=== PATIENT | female | born 1980 | race Caucasian/White ===

== ENCOUNTER 2020-10-19 01:36 | Inpatient (IN) | payer OTHER ==
[2020-10-19] MEDS ORDERED: BUTORPHANOL 2 MG/1 ML INJ IV PRN (02:57)
[2020-10-19] MEDS ORDERED: ONDANSETRON 4 MG/2 ML INJ IV PRN ×2 (02:57→04:16)
[2020-10-19] MEDS ORDERED: OXYTOCIN 10 UNIT/1 ML INJ IM PRN (02:57)
[2020-10-19] MEDS ORDERED: LOPERAMIDE 2 MG CAP PO PRN (02:57)
[2020-10-19] MEDS ORDERED: MINERAL OIL 30 ML ORAL LIQD PO PRN (02:57)
[2020-10-19] MEDS ORDERED: ACETAMINOPHEN 325 MG TAB PO PRN (02:57)
[2020-10-19] MEDS ORDERED: CARBOPROST TROMETHAMINE 250 MCG/1 ML INJ IM PRN (02:57)
[2020-10-19] MEDS ORDERED: fentaNYL 100 MCG/2 ML INJ IV PRN (02:57)
[2020-10-19] MEDS ORDERED: ePHEDrine SULFATE 50 MG/1 ML INJ IV PRN ×2 (02:57→04:16)
[2020-10-19] MEDS ORDERED: TERBUTALINE 1 MG/1 ML INJ SUB-Q PRN (02:57)
[2020-10-19] MEDS ORDERED: METHYLERGONOVINE MALEATE 0.2 MG/ML VIAL IM PRN (02:57)
[2020-10-19] MEDS ORDERED: LIDOCAINE (2%) 20 MG/1 ML VIAL 20 ML MDV INFILTRATI ONE (02:57)
[2020-10-19] MEDS ORDERED: miSOPROStol 200 MCG TAB PR PRN (02:57)
[2020-10-19] MEDS ORDERED: AMPICILLIN/NS 2 GM/100 ML 2 GM/100 ML BAG IV ONE (02:57)
[2020-10-19] MEDS ORDERED: OXYTOCIN DRIP 30 UNITS/500 ML BAG IV SCH (03:00)
[2020-10-19] MEDS ORDERED: LACTATED RINGERS 1,000 ML ONE (03:08)
[2020-10-19] MEDS: LACTATED RINGERS 1,000 ML IV SCH ×2 (03:33→04:31)
[2020-10-19 03:59] LABS: Hematocrit 33.8 % (30.3-42.9); Hemoglobin 10.6 gm/dl (10.1-14.3); Mean Corpuscular HGB Conc 31 % (30-34); Mean Corpuscular Volume 71 fl (79-97); Platelet Count 259 K/mm3 (140-440); Red Blood Count 4.74 M/mm3 (3.65-5.03); Red Cell Distribution Width 17.1 % (13.2-15.2)
[2020-10-19] MEDS ORDERED: NalbUPHINE 10 MG/1 ML INJ IV PRN (04:16)
[2020-10-19] MEDS ORDERED: NALOXONE 2 MG/2 ML INJ IV PRN (04:16)
[2020-10-19] MEDS ORDERED: LACTATED RINGERS 250 ML IV SOLN IV ONE (04:16)
[2020-10-19] MEDS ORDERED: diphenhydrAMINE 50 MG/ML VIAL IV PRN (04:16)
[2020-10-19 04:24] LABS: Hepatitis C Virus Antibody Non-Reactive (NonReactive)
--- NOTE | 2020-10-19 04:47 | Anesthesia Consultation ---
Anesthesia Consult and Med Hx Date of service: 10/19/20 - Airway Anesthetic Teeth Evaluation: Good ROM Head & Neck: Adequate Mental/Hyoid Distance: Adequate Mallampati Class: Class I Intubation Access Assessment: Good - Pulmonary Exam CTA: Yes - Cardiac Exam Cardiac Exam: RRR - Pre-Operative Health Status ASA Pre-Surgery Classification: ASA2 Proposed Anesthetic Plan: Epidural - Pulmonary Hx Smoking: No Hx Asthma: No COPD: No Hx Pneumonia: No Hx Sleep Apnea: No - Cardiovascular System Hx Hypertension: No Hx Heart Attack/AMI: No Hx Angina: No - Central Nervous System Hx Psychiatric Problems: Yes (2008 depression) - Gastrointestinal Hx Gastroesophageal Reflux Disease: No - Endocrine Hx Renal Disease: No Hx End Stage Renal Disease: No Hx Liver Disease: No Hx Insulin Dependent Diabetes: No Hx Non-Insulin Dependent Diabetes: No - Other Systems Hx Alcohol Use: No
--- NOTE | 2020-10-19 04:48 | Progress Note ---
Labor Epidural - Labor Epidural Start Time: 04:28 Stop Time: 04:40 Performed by:: SHILPA BRANTLEY Procedure: Patient is requesting epidural for labor and pain. H&P, labs were reviewed. Patient IDed, H&P reviewed, all questions and concerns were answered, and consent was signed. Timeout was performed at bedside. Patient in sitting position. Sterile prep and drape was performed. 3ml of 1% lidocaine skin wheal at L[3]- L [4]. 18-gauge [employer] epidural needle was advanced to loss of resistance with air technique 5cm. Negative CSF negative blood. Epidural catheter advanced to [10] centimeters. [negative] Aspiration [negative] test dose. Sterile dressing applied. Patient tolerated procedure.
[2020-10-19] MEDS ORDERED: fentaNYL-BUPIV 2 MCG/ML-0.125% 200 MCG/100 ML BAG EPIDURAL SCH (05:00)
--- NOTE | 2020-10-19 05:09 | History and Physical Report ---
History of Present Illness Date of examination: 10/19/20 Date of admission: 10/19/20 03:14 Chief complaint: active labor/SROM History of present illness: He 10-year-old -0-1-1 at 39+ weeks with spontaneous rupture of membranes and active labor. care at [facility] with no records. Past History Past Surgical History: no surgical history Social history: no significant social history - Obstetrical History Expected Date of Delivery: 10/26/20 Actual Gestation: 39 Week(s) 0 Day(s) : 3 Para: 1 Medications and Allergies Allergies Allergy/AdvReac Type Severity Reaction Status Date / Time No Known Allergies Allergy Verified 10/19/20 03:06 Active Meds: Active Medications Acetaminophen (Acetaminophen 325 Mg Tab) 650 mg PO Q4H PRN PRN Reason: Pain, Mild (1-3) Butorphanol Tartrate (Butorphanol 2 Mg/1 Ml Inj) 1 mg IV Q2H PRN PRN Reason: Pain, Moderate(4-6) LABOR PAIN Carboprost Tromethamine (Carboprost Tromethamine 250 Mcg/1 Ml Inj) 250 mcg IM ONCE PRN PRN Reason: Uterine Bleeding Diphenhydramine HCl (Diphenhydramine 50 Mg/Ml Vial) 12.5 mg IV Q2H PRN PRN Reason: Itching Ephedrine Sulfate (Ephedrine Sulfate 50 Mg/1 Ml Inj) 10 mg IV Q2M PRN PRN Reason: Hypotension Fentanyl (Fentanyl 100 Mcg/2 Ml Inj) 100 mcg IV Q2H PRN PRN Reason: Pain,Severe (7-10) LABOR PAIN Last Admin: 10/19/20 03:32 Dose: 100 mcg Documented by: Lactated Ringer's (Lactated Ringers) 1,000 mls @ 125 mls/hr IV DIRECT [place] Last Admin: 10/19/20 04:31 Dose: 125 mls/hr Documented by: Oxytocin/Sodium Chloride (Pitocin/Ns 30 Unit/500ml) 30 units in 500 mls @ 40 mls/hr IV TITR [place]; Protocol Fentanyl/Bupivacaine/Sodium Chlor (Fentanyl-Bupiv 2 Mcg/Ml-0.125%) 200 mcg in 100 mls @ 12 mls/hr EPIDURAL TITR [place]; Protocol Loperamide HCl (Loperamide 2 Mg Cap) 2 mg PO ONCE PRN PRN Reason: give with Hemabate Methylergonovine Maleate (Methylergonovine Maleate 0.2 Mg/Ml Vial) 0.2 mg IM ONCE PRN PRN Reason: Uterine Bleeding Mineral Oil (Mineral Oil 30 Ml Oral Liqd) 30 ml PO QHS PRN PRN Reason: Constipation Misoprostol (Misoprostol 200 Mcg Tab) 800 mcg MN ONCE PRN PRN Reason: Uterine Bleeding Nalbuphine HCl (Nalbuphine 10 Mg/1 Ml Inj) 2.5 mg IV Q2H PRN PRN Reason: Itching Naloxone HCl (Naloxone 2 Mg/2 Ml Inj) 0.2 mg IV Q5M PRN PRN Reason: Respiratory sedation Ondansetron HCl (Ondansetron 4 Mg/2 Ml Inj) 4 mg IV Q8H PRN PRN Reason: Nausea And Vomiting Oxytocin (Oxytocin 10 Unit/1 Ml Inj) 10 unit IM ONCE PRN PRN Reason: Uterine Bleeding Terbutaline Sulfate (Terbutaline 1 Mg/1 Ml Inj) 0.25 mg SUB-Q ONCE PRN PRN Reason: Hyperstimulation/Hypertonicity Review of Systems All systems: negative (contractions,leaking fluid) - Vital Signs Vital signs: Vital Signs Pulse Pulse Ox 96 H 98 10/19/20 02:17 10/19/20 02:17 Temp Pulse Resp BP Pulse Ox 97.8 F 92 H 18 112/68 98 10/19/20 03:42 10/19/20 05:03 10/19/20 04:32 10/19/20 04:51 10/19/20 05:03 - Physical Exam Breasts: Positive: deferred Cardiovascular: Regular rate Lungs: Positive: Clear to auscultation Abdomen: Positive: normal appearance, soft, normal bowel sounds Genitourinary (Female): Positive: normal external genitalia, normal perenium Vagina: Positive: normal moisture Uterus: Positive: enlarged Anus/Rectum: Positive: normal perianal skin Extremities: Positive: normal Deep Tendon Reflex Grade: Normal +2 - Obstetrical FHR: category 1 Uterine Contraction Monitor Mode: External Cervical Dilatation: 5 Cervical Effacement Percentage: 80 station: -1 Uterine Contraction Pattern: Regular Results Result Diagrams: 10/19/20 03:10 Abnormal lab results 10/19/20 Range/Units 03:10 WBC 16.3 H (4.5-11.0) K/mm3 MCV 71 L (79-97) fl MCH 22 L (28-32) pg RDW 17.1 H (13.2-15.2) % All other labs normal. Assessment and Plan SROM/active labor Plan for admission lab GBS coverage Pain meds as needed continuous monitoring Maternal and status reassuring at bedside Tiffanie Diana MD
--- NOTE | 2020-10-19 05:43 | Progress Note ---
Subjective - Subjective Date of service: 10/19/20 Interval history: 9cm/80%/-2 FHT Category 1 [place]: Q3-4 miutes plan for oxytocin at 2mu/min expect kem Diana MD Objective - Vital Signs Vital Signs: Vital Signs - 12hr 10/19/20 10/19/20 10/19/20 02:17 02:19 02:21 Temperature 98.5 F Pulse Rate 96 H 96 H 95 H Respiratory 18 Rate Blood Pressure 155/94 Blood Pressure 157/67 [Right] O2 Sat by Pulse 98 98 Oximetry O2 Sat by Pulse Oximetry [ Bilateral] 10/19/20 10/19/20 10/19/20 02:22 02:27 02:32 Temperature Pulse Rate 105 H 99 H 91 H Respiratory Rate Blood Pressure Blood Pressure [Right] O2 Sat by Pulse 99 98 100 Oximetry O2 Sat by Pulse Oximetry [ Bilateral] 10/19/20 10/19/20 10/19/20 02:37 02:38 02:42 Temperature Pulse Rate 95 H 96 H 98 H Respiratory Rate Blood Pressure 169/113 157/67 Blood Pressure [Right] O2 Sat by Pulse 97 98 Oximetry O2 Sat by Pulse Oximetry [ Bilateral] 10/19/20 10/19/20 10/19/20 02:47 02:52 02:57 Temperature Pulse Rate 95 H 92 H 106 H Respiratory Rate Blood Pressure Blood Pressure [Right] O2 Sat by Pulse 98 98 98 Oximetry O2 Sat by Pulse Oximetry [ Bilateral] 10/19/20 10/19/20 10/19/20 03:02 03:17 03:22 Temperature Pulse Rate 105 H 99 H 94 H Respiratory Rate Blood Pressure Blood Pressure [Right] O2 Sat by Pulse 98 98 99 Oximetry O2 Sat by Pulse Oximetry [ Bilateral] 10/19/20 10/19/20 10/19/20 03:27 03:32 03:34 Temperature Pulse Rate 106 H 101 H Respiratory 18 Rate Blood Pressure Blood Pressure [Right] O2 Sat by Pulse 99 98 Oximetry O2 Sat by Pulse 98 Oximetry [ Bilateral] 10/19/20 10/19/20 10/19/20 03:37 03:42 03:44 Temperature 97.8 F Pulse Rate 94 H 109 H 98 H Respiratory 19 Rate Blood Pressure 170/101 Blood Pressure 147/77 [Right] O2 Sat by Pulse 99 97 Oximetry O2 Sat by Pulse Oximetry [ Bilateral] 10/19/20 10/19/20 10/19/20 03:45 03:47 03:52 Temperature Pulse Rate 92 H 104 H 94 H Respiratory Rate Blood Pressure 147/77 Blood Pressure [Right] O2 Sat by Pulse 98 99 Oximetry O2 Sat by Pulse Oximetry [ Bilateral] 10/19/20 10/19/20 10/19/20 03:57 04:02 04:07 Temperature Pulse Rate 101 H 95 H 96 H Respiratory Rate Blood Pressure Blood Pressure [Right] O2 Sat by Pulse 98 98 99 Oximetry O2 Sat by Pulse Oximetry [ Bilateral] 10/19/20 10/19/20 10/19/20 04:12 04:16 04:17 Temperature Pulse Rate 98 H 101 H 104 H Respiratory Rate Blood Pressure 129/84 Blood Pressure [Right] O2 Sat by Pulse 99 97 Oximetry O2 Sat by Pulse Oximetry [ Bilateral] 10/19/20 10/19/20 10/19/20 04:23 04:28 04:30 Temperature Pulse Rate 104 H 108 H 111 H Respiratory Rate Blood Pressure 153/90 Blood Pressure [Right] O2 Sat by Pulse 98 99 Oximetry O2 Sat by Pulse Oximetry [ Bilateral] 10/19/20 10/19/20 10/19/20 04:32 04:33 04:36 Temperature Pulse Rate 97 H 105 H Respiratory 18 Rate Blood Pressure 144/75 146/71 Blood Pressure [Right] O2 Sat by Pulse 99 Oximetry O2 Sat by Pulse Oximetry [ Bilateral] 10/19/20 10/19/20 10/19/20 04:38 04:42 04:43 Temperature Pulse Rate 102 H 103 H 105 H Respiratory Rate Blood Pressure 117/72 Blood Pressure [Right] O2 Sat by Pulse 99 99 Oximetry O2 Sat by Pulse Oximetry [ Bilateral] 10/19/20 10/19/20 10/19/20 04:45 04:48 04:51 Temperature Pulse Rate 105 H 100 H 109 H Respiratory Rate Blood Pressure 122/75 114/71 112/68 Blood Pressure [Right] O2 Sat by Pulse 99 Oximetry O2 Sat by Pulse Oximetry [ Bilateral] 10/19/20 10/19/20 10/19/20 04:53 04:58 05:03 Temperature Pulse Rate 104 H 80 92 H Respiratory Rate Blood Pressure Blood Pressure [Right] O2 Sat by Pulse 99 98 98 Oximetry O2 Sat by Pulse Oximetry [ Bilateral] 10/19/20 10/19/20 10/19/20 05:08 05:13 05:18 Temperature Pulse Rate 80 95 H 79 Respiratory Rate Blood Pressure Blood Pressure [Right] O2 Sat by Pulse 98 98 98 Oximetry O2 Sat by Pulse Oximetry [ Bilateral] 10/19/20 10/19/20 10/19/20 05:23 05:28 05:32 Temperature Pulse Rate 73 79 92 H Respiratory Rate Blood Pressure 98/55 Blood Pressure [Right] O2 Sat by Pulse 97 98 Oximetry O2 Sat by Pulse Oximetry [ Bilateral] 10/19/20 10/19/20 05:33 05:38 Temperature Pulse Rate 76 109 H Respiratory Rate Blood Pressure Blood Pressure [Right] O2 Sat by Pulse 98 99 Oximetry O2 Sat by Pulse Oximetry [ Bilateral] - Labs Labs: Abnormal Labs 10/19/20 03:10 WBC 16.3 H MCV 71 L MCH 22 L RDW 17.1 H Laboratory Results - last 24 hr 10/19/20 10/19/20 10/19/20 03:10 03:10 03:10 WBC 16.3 H RBC 4.74 Hgb 10.6 Hct 33.8 MCV 71 L MCH 22 L MCHC 31 RDW 17.1 H Plt Count 259 Syphilis IgG Antibody Nonreactive Hep Bs Antigen Hepatitis C Antibody Non-reactive HIV 1&2 Antibody Rapid HIV P24 Antigen Rubella IgG Antibody Immune Blood Type O POSITIVE Antibody Screen Negative 10/19/20 10/19/20 03:10 03:10 WBC RBC Hgb Hct MCV MCH MCHC RDW Plt Count Syphilis IgG Antibody Hep Bs Antigen Nonreactive Hepatitis C Antibody HIV 1&2 Antibody Rapid Non react HIV P24 Antigen Non react Rubella IgG Antibody Blood Type Antibody Screen
[2020-10-19 07:25] LABS: Bilirubin,Urine NEG (Negative); Blood,Urine NEG (Negative); Color,Urine Yellow (Yellow); Protein,Urine <15 mg/dL mg/dL (Negative); Urobilinogen,Urine < 2.0 mg/dL (<2.0); WBC,Urine < 1.0 /HPF (0.0-6.0)
[2020-10-19 07:31] LABS: Amphetamine Screen,Urine PRESUMPTIVE NEGATIVE; Benzodiazepines Screen,Urine PRESUMPTIVE NEGATIVE; Cannabinoid Screen,Urine PRESUMPTIVE NEGATIVE; Cocaine Screen,Urine PRESUMPTIVE NEGATIVE; Methadone Screen,Urine PRESUMPTIVE NEGATIVE; Opiate Screen,Urine PRESUMPTIVE NEGATIVE
[2020-10-19] MEDS ORDERED: LANOLIN/ZINC/DIMETHICONE (LANSINOH) 7 GM TP PRN ×2 (08:28)
[2020-10-19] MEDS ORDERED: BENZOCAINE/MENTHOL 20/0.5% TOP SPRAY 56 GM TP PRN (08:28)
[2020-10-19] MEDS ORDERED: diphenhydrAMINE 25 MG CAP PO PRN (08:28)
[2020-10-19] MEDS ORDERED: MAGNESIUM HYDROXIDE (MOM) ORAL LIQD UDC PO PRN (08:28)
[2020-10-19] MEDS ORDERED: WITCH HAZEL/ GLYCERIN PAD TP PRN (08:28)
[2020-10-19] MEDS ORDERED: HYDROcodone/ACETAMINOPHEN 5-325 MG TAB PO PRN (08:30)
--- NOTE | 2020-10-19 08:37 | Procedure Note ---
OB Delivery Note - Delivery Date of Delivery: 10/19/20 Surgeon: BILL VALVERDE Estimated blood loss: other (250 cc) - Vaginal Delivery presentation: vertex Delivery position: OA Intrapartum events: none Delivery induction: none Delivery augmentation: pitocin Delivery monitor: external FHT, external uterine Route of delivery: Delivery placenta: spontaneous Delivery cord: 3 umbilical vessels Episiotomy: none Delivery laceration: 1st degree Delivery repair: vicryl Anesthesia: epidural Delivery comments: Spontaneous vaginal delivery at 08:00 of liveborn female infant weighing 6 lb. 14 oz. over perineal laceration with apgars of 8/9. was atraumatic; no nuchal cord. Baby placed on mom's chest immediately after . Baby suctioned with bulb syringe and dried. Spontaneous cry and respirations. 3 vessel cord double clampd and cut and baby taken to radiant warmer for further suctioning. Cord blood obtained. Spontaneous delivery of intact placenta and membranes at 08:03. Pitocin to IV fluids after delivery of placenta. Fundus firm and midline. EBL 250 cc. Placenta and membranes appear intact; placenta slightly irregular (pelvic US ordered). First degree perineal laceration repaired with 2-0 vicryl in usual sterile fashion. No other lacerations noted. Vaginal sweep negative. Sponge count correct. Mother and baby stable in birthing room.
--- NOTE | 2020-10-19 10:15 | Ultrasound Report ---
ULTRASOUND PELVIS LIMITED INDICATION / CLINICAL INFORMATION: Check for accessory placental lobe. Evaluate for retained products of conception. . TECHNIQUE: Transabdominal. Duplex Color Doppler used: Yes. COMPARISON: None available FINDINGS: Uterus is enlarged characteristic of post appearance. Endometrial complex appears normal measu ring 0.2 cm in thickness. No abnormal soft tissue or fluid within the endometrial cavity. No signific ant abnormality on color Doppler imaging. No free fluid in the pelvis. IMPRESSION: 1. No sonographic abnormality. No sonographic evidence for retained products of conception. Signer Name: Michelle Chaudhari MD Signed: 10/19/2020 10:11 AM Workstation Name: [id number]
--- NOTE | 2020-10-19 16:24 | Post Anesthesia Evaluation ---
- Post Anesthesia Evaluation Patient Participated: Yes Airway Patent: Yes Stable Respiratory Function: Yes Nausea/Vomiting: No Temp > 96.8F: Yes Pain Manageable: Yes Adequeate Hydration: Yes Anesthesia Complications: No Block Receding Appropriately: Yes Patient on Ventilator: No
[2020-10-19] MEDS: IBUPROFEN 600 MG TAB PO SCH ×2 (18:02→23:11)
[2020-10-19] MEDS: DOCUSATE SODIUM 100 MG CAP PO SCH ×3 (18:29→23:15)
[2020-10-19] MEDS: PRENATAL VIT27-FE FUMARATE-FOLIC ACID VIT TAB PO SCH (18:29)
[2020-10-19 20:40] LABS: Hematocrit 33.9 % (30.3-42.9); Hemoglobin 10.5 gm/dl (10.1-14.3)
[2020-10-20] MEDS: IBUPROFEN 600 MG TAB PO SCH (06:01)
[2020-10-20] MEDS ORDERED: FERROUS SULFATE 325 MG TAB PO SCH (10:00)
--- NOTE | 2020-10-20 10:17 | Progress Note ---
Assessment and Plan A: S/P P: D/C home per pt's request. Subjective - Subjective Date of service: 10/20/20 Principal diagnosis: s/p Patient reports: appetite normal, voiding normally, pain well controlled, ambulating normally : doing well, bottle feeding Objective - Vital Signs Latest vital signs: Vital Signs Temp Pulse Resp BP BP Pulse Ox Pulse Ox 10/20/20 08:06 97.9 F 90 18 103/77 98 10/20/20 00:00 98.6 F 70 18 111/78 10/19/20 20:17 98.0 F 74 18 113/73 97 10/19/20 20:00 98 10/19/20 16:05 98.1 F 77 18 125/80 100 10/19/20 14:07 98.0 F 78 16 132/75 100 99 Intake and Output 10/19/20 10/20/20 10/20/20 22:59 06:59 14:59 Intake Total 300 200 120 Output Total 1100 600 Balance -800 -400 120 Intake: Oral 120 Intake, Free Water 300 200 Output: Urine 1100 600 Void 1100 600 Other: Total, Intake Amount 120 Total, Output Amount 500 600 # Voids Void 1 1 1 - Exam Abdomen: Present: normal appearance, soft, normal bowel sounds Vulva: both: normal Uterus: Present: normal, firm, fundal height below umbilicus Extremities: Present: normal Incision: Present: normal, intact
--- NOTE | 2020-10-20 10:20 | Discharge Summary ---
Providers - Providers Date of Admission: 10/19/20 03:14 Date of discharge: 10/20/20 Attending physician: CASH VALLADARES MD Primary care physician: CASH VALLADARES MD Hospitalization Reason for admission: active labor, rupture of membranes, IUP at term Delivery: Episiotomy: none Laceration: 1st degree Incision: normal, intact Other procedures: none complications: none Discharge diagnosis: IUP at term delivered baby: female Condition at discharge: Stable Disposition: 01 HOME / SELF CARE / HOMELESS Plan - Discharge Medications Prescriptions: Ibuprofen [Motrin 600 MG tab] 600 mg PO Q6H PRN #30 tablet PRN Reason: Menstrual Cramps - Provider Discharge Summary Activity: routine, no sex for 6 weeks, no heavy lifting 4 weeks, no strenuous exercise Diet: routine Instructions: routine Additional instructions: [] Smoking cessation referral if applicable(refer to patient education folder for contact #) [] Refer to [facility]'s [facility] Booklet Call your doctor immediately for: * Fever > 100.5 * Heavy vaginal bleeding ( >1 pad per hour) * Severe persistent headache * Shortness of breath * Reddened, hot, painful area to leg or breast * Drainage or odor from incision. * Keep incision clean and dry at all times and follow doctor's instructions regarding bathing/showering - Follow up plan Follow up: CASH VALLADAERS MD [Primary Care Provider] - 6 Weeks
[2020-10-20] MEDS: PRENATAL VIT27-FE FUMARATE-FOLIC ACID VIT TAB PO SCH (10:43)
[2020-10-20] MEDS: DOCUSATE SODIUM 100 MG CAP PO SCH (10:43)
[2020-10-20 16:32] VITALS: BP 109/65
== END 2020-10-20 21:33 | disposition home or self-care (01) | DRG 807 ==
LOC: TRG 01:36 → APU 01:41 → OBSVTOIN 03:14 → LD 03:14 → TRG 03:14 → OB 10:21
PROVIDERS: ADMIT Obstetrics & Gynecology; ATTEND Obstetrics & Gynecology
PROC: 10E0XZZ Delivery of Products of Conception, External Approach (ICD-10-PCS; principal; 2020-10-19)
PROC: 0HQ9XZZ Repair Perineum Skin, External Approach (ICD-10-PCS; 2020-10-19)
PROC: 3E0R3BZ Introduction of Anesthetic Agent into Spinal Canal, Percutaneous Approach (ICD-10-PCS; 2020-10-19)
PROC: 00HU33Z Insertion of Infusion Device into Spinal Canal, Percutaneous Approach (ICD-10-PCS; 2020-10-19)
DX: O70.0 First degree perineal laceration during delivery (principal); Z37.0 Single live birth; Z3A.39 39 weeks gestation of pregnancy; Z20.822 Contact with and (suspected) exposure to COVID-19
CPT/HCPCS: 36415; 59025; 76857; 80307; 81001; 85014; 85018; 85027; 86592; 86706; 86762; 86803; 86850; 86900; 86901; 87806; G0378; J0290; J2590; J3010; J7120; U0003